=== PATIENT | male | born 1990 | race African-American/Black ===

== ENCOUNTER 2024-06-02 20:20 | Emergency (ER) | payer OTHER ==
[~2024-06-02 20:20] MED LIST: HYDROmorphone 1 MG/ML Syringe ONE; Ondansetron 4 MG/2 ML SDV ONE
[2024-06-02] MEDS ORDERED: Sodium Chloride 0.9% 1,000 ML IV ONE ×2 (20:21)
[2024-06-02] MEDS: Iopamidol 612 MG/ML 100 ML Bottle IVPUSH ONE (21:27)
== END 2024-06-02 23:50 | disposition home or self-care (01) ==
LOC: EDBD → JD.ED 20:20
DX: S29.011A Strain of muscle and tendon of front wall of thorax, initial encounter (principal); R10.84 Generalized abdominal pain; V89.2XXA Person injured in unspecified motor-vehicle accident, traffic, initial encounter; Y92.410 Unspecified street and highway as the place of occurrence of the external cause
CPT/HCPCS: 70450; 71260; 72125; 74177; 99284; J1171; J2405; J7030; Q9967

== ENCOUNTER 2024-06-03 09:57 | Emergency (ER) | payer SELFPAY | END 2024-06-03 17:30 | disposition home or self-care (01) | LOC: JD.ED 09:57 → EDBD 09:57 → JD.ED 17:30 | DX: H53.8 Other visual disturbances (principal); S62.111A Displaced fracture of triquetrum [cuneiform] bone, right wrist, initial encounter for closed fracture; X50.9XXA Other and unspecified overexertion or strenuous movements or postures, initial encounter | CPT/HCPCS: 29125; 73110-26-RT; 73110-RT; 99284-25 ==